=== PATIENT | male | born 1965 | race Caucasian/White ===

== ENCOUNTER 2017-03-09 16:14 | Emergency (ER) | payer MEDICARE ==
[~2017-03-09] VITALS: Ht 182.9 cm; Wt 109.0 kg
[2017-03-09 16:14] VITALS: TEMP 97.6; Ht 182.9 cm; Wt 109.0 kg
[2017-03-09] MEDS ORDERED: IBUP-1724 PO (16:52)
[2017-03-09] MEDS ORDERED: VENL37.572 PO (16:52)
[2017-03-09] MEDS ORDERED: TRAZ-170 PO (16:52)
[2017-03-09] MEDS ORDERED: MELA10TA2 PO (16:52)
[2017-03-09 16:56] LABS: BLOOD, URINE NEGATIVE (NEGATIVE); COLOR,URINE YELLOW (YELLOW); LEUKOCYTE ESTERASE ,URINE NEGATIVE (NEGATIVE); NITRITE,URINE NEGATIVE (NEGATIVE)
--- NOTE | 2017-03-09 16:56 | ERPDOC ---
Departure Disposition Decision Date: March 09, 2017 Disposition Decision Time: 21:35 Disposition: [facility] TO [facility] Impression Impression Impression: Primary Impression: Suicidal ideation Severity: Mild Condition: Improved Seen By: Physician only Patient Instructions: Medical Clearance for Psychiatric Care (ED), Suicide Prevention for Adults (ED) Problems/Meds/Labs Reviewed?: Yes Medications reviewed and manag: Yes Follow up care ordered?: Yes Mental Status: Alert, Oriented HPI - Psychosocial General Chief Complaint: Psychiatric Problems Stated Complaint: ANXIETY,DEPRESSION Time Seen by MD: 16:18 Source: patient (Patient presents to the ER with multiple complaints. Patient has relocated from [place], and had [facility] for anxiety , depression and schizophenia. Patient states he feels more anxious than normal, and has been having suicidal thought, without a plan ) Exam Limitations: no limitations HPI - Psychosocial Occurred At: home Onset: Changing over time Duration: other Severity: mild Associated Symptoms: anxiety, impaired concentration, suicidal ideation Hx of Similar Symptoms: Yes Allergies: Coded Allergies: aspirin (Verified Allergy, Mild, HIVES, 03/09/17) Past History Past Medical History Pt denies signifigant PMH Hx Echocardiogram: No Psychological: anxiety, depression, schizophrenia Surgical History Denies Surgeries Family History Family History: Negative Social History Smoking Status: Unknown if ever smoked Does patient use chewing tobac: No Second Hand Exposure: No Substance Use Type: does not use Alcohol Intake: none Marital Status: Sexuality: female partner Housing: house Household Members: spouse Service: No Occupational Hazard: No Advance Directives: Yes Full Code Record Review Pertinent history updated: Yes Review of Systems Constitutional Constitutional: DENIES: chills, fever Eyes Lids/Accessories: DENIES: erythema, swelling ENMT Ears: DENIES: erythema, pain Balance: DENIES: ataxia, vertigo Sinuses: DENIES: congestion, rhinorrhea Mouth/Throat: DENIES: sore throat Cardiovascular Cardiac: DENIES: chest pain, dyspnea on exertion, orthopnea Rhythm/Rate: DENIES: tachycardia Pulmonary Respiratory: DENIES: cough, dyspnea, sputum GI Upper Abdomen: DENIES: nausea, pain, vomiting Lower Abdomen: DENIES: constipation, diarrhea, pain General: DENIES: dysuria Musculoskeletal General: DENIES: cramps, pain, weakness Integumentary Skin: DENIES: color change, itching, rash Neurological General: DENIES: ataxia, change in strength, headache, numbness, poor coordination, seizures, syncope, vertigo, weakness Psychiatric Psychiatric: DENIES: anxiety, depression, nervousness Hematologic/Lymphatic Hematologic/Lymphatic: DENIES: anemia Allergic/Immunological Allergic/Immunoligical: DENIES: sneezing All other Systems All Other Systems: Reviewed and Negative Physical Exam General General Nourishment: well nourished, well developed, appears stated age, adult General Body Habitus: well groomed Vitals and Pain First Documented Vital Signs Date Time Temp Pulse Resp B/P Pulse Ox O2 Delivery O2 Flow Rate FiO2 03/09/17 16:14 97.6 77 20 99/62 100 Room Air Weight: Kilograms: 109.000 Height (feet): 6 Height (inches): 0 Triage Pain Scale: RN VS reviewed by Provider: Yes Eyes (brief) Eyes Brief: found: EOMI, PERRL ENMT (brief) ENMT Brief: FOUND: TM clear, TM good light reflex, mucosa moist, NOT FOUND: pharnyx erythema Neck (brief) Neck: FOUND: trachea midline, NOT FOUND: adenopathy, nuchal rigidity, tenderness, tracheal deviation Respiratory (brief) Respiratory: FOUND: clear all milner, equal bilaterally Cardiovascular (brief) Cardiac: FOUND: regular rate, regular rhythm Capillary Refill: <2 sec Pulses: all distal extremities, equal, strong Abdomen (brief) Abdominal Brief: FOUND: bowel normo active x4, soft, NOT FOUND: distended, tender Lymphatic (brief) Lymphatic Brief: NOT FOUND: adenopathy Musculoskeletal (brief) Musculoskeletal Brief: NOT FOUND: spasm, tenderness Integumentary (brief) Integumentary Brief: FOUND: pink, warm Neurologic (brief) Neurological Brief: FOUND: CN w/o gross def to obs, gait w/o gross def to obs, motor-no gross deficits, sensory-no gross deficits, NOT FOUND: ataxia Psychiatric (brief) Psychiatric Brief: FOUND: alert, attentive, normal affect, oriented Differential Diagnoses Considering: Anxiety, Bipolar, Depression, Homicidal Ideation, Hypoglycemia, Alcohol Intoxication, Other Intoxication, Acute Psychosis, Suicidal Attempt, Suicidal Gesture, Suicidal Ideation Progress Results/Orders Orders Procedure Category Date Status Time Cbc W/Auto LAB 03/09/17 Complete Diff-Reflex Manual Cmp - Comprehensive LAB 03/09/17 Complete Metabolic Acetaminophen LAB 03/09/17 Complete Salicylate LAB 03/09/17 Complete Ethanol LAB 03/09/17 Complete Tsh - Thyroid Stim LAB 03/09/17 Complete Hormone Ua, Dip Wreflex LAB 03/09/17 Complete [employer] 16:30 Drug Screen LAB 03/09/17 [place] [facility] [place] Lorazepam (Ativan) PHA 03/09/17 Complete 17:45 Lab Results Laboratory Tests Test 03/09/17 16:46 03/09/17 16:49 03/09/17 18:43 White Blood Count 6.7T/MM3 Red Blood Count 4.54M/MM3 Hemoglobin 14.8GM/DL Hematocrit 41.4% Mean Corpuscular Volume 91.2UM3 Mean Corpuscular Hemoglobin 32.6UUG Mean Corpuscular Hemoglobin Concent 35.7GM/DL RDW Standard Deviation 39.2FL Platelet Count 216T/MM3 Mean Platelet Volume 10.8UM3 Immature Granulocyte % (Auto) % Neutrophils (%) (Auto) % Lymphocytes (%) (Auto) % Monocytes (%) (Auto) % Eosinophils (%) (Auto) % Basophils (%) (Auto) % Absolute Immature Granulocyte (auto T/MM3 Absolute Neutrophils (auto) T/MM3 Absolute Lymphocytes (auto) T/MM3 Absolute Monocytes (auto) T/MM3 Absolute Eosinophils (auto) T/MM3 Absolute Basophils (auto) T/MM3 Neutrophils % (Manual) 69.0% Band Neutrophils % 3.0% Lymphocytes % (Manual) 21.0% Monocytes % (Manual) 4.0% Eosinophils % (Manual) 2.0% Basophils % (Manual) 1.0% Absolute Neutrophils (Manual) 4.6T/MM3 Band Neutrophils # 0.2T/MM3 Lymphocytes # (Manual) 1.4T/MM3 Monocytes # (Manual) 0.3T/MM3 Eosinophils # (Manual) 0.1T/MM3 Basophils # (Manual) 0.1T/MM3 Red Cell Morphology Comment Normal Turbidity < 20 Sodium Level 145MEQ/L Potassium Level 3.7MEQ/L Chloride Level 105MEQ/L Carbon Dioxide Level 28MEQ/L Anion Gap 12MEQ/L Blood Urea Nitrogen 16.0MG/DL Creatinine 0.7MG/DL Glomerular Filtration Rate Calc 120 BUN/Creatinine Ratio 23RATIO Glucose Level 103MG/DL Calculated Osmolality 280MOSM/KG Calcium Level 9.3MG/DL Total Bilirubin 0.60MG/DL Icterus Index < 2 Aspartate Amino Transf (AST/SGOT) 24U/L Alanine Aminotransferase (ALT/SGPT) 43U/L Alkaline Phosphatase 84U/L Total Protein 7.1G/DL Albumin 4.2G/DL Globulin 2.9G/DL Albumin/Globulin Ratio 1.4RATIO Thyroid Stimulating Hormone (TSH) 0.96MIU/L Chemistry Specimen Hemolysis < 15 Salicylates Level < 1.0MG/DL Acetaminophen Level < 10UG/ML Alcohol, Quantitative <10MG/DL Urine Collection Type Cleancatch-midstream Urine Color Yellow Urine Turbidity Clear Urine pH 6.5 Urine Specific [place] 1.020 Urine Protein Negative Urine Glucose (UA) Negative Urine Ketones Negative Urine Blood Negative Urine Nitrite Negative Urine Bilirubin Negative Urine Urobilinogen 1.0EU/DL Urine Leukocyte Esterase Negative Urinalysis Comment Microscopic not ind. Urine Opiates Screen NegativeNG/ML Urine Oxycodone Screen NegativeNG/ML Urine Methadone Screen NegativeNG/ML Urine Propoxyphene Screen NegativeNG/ML Urine Barbiturates Screen NegativeNG/ML Urine Tricyclic Antidepressants NegativeNG/ML Urine Phencyclidine Screen NegativeNG/ML Urine Amphetamines Screen NegativeNG/ML Urine Methamphetamines Screen NegativeNG/ML Urine Benzodiazepines Screen NegativeNG/ML Urine Cocaine Screen NegativeNG/ML Urine Cannabinoids Screen NegativeNG/ML Lab Scanned Report REFERENCE [id number] Medications Current ED Medications Lorazepam (Ativan) 1 mg O ONCE PO Last administered on 03/09/17t 17:52; Start 03/09/17 at 17:45; Stop 03/09/17 at 17:46; Status DC Progress Progress Case discussed with Dr. Shah at 18:00 hours, who will assume care for the patient and will make the final disposition Consult/PCP Consult/PCP : Physician Contacted: Amalia Ace Time Called: 17:58 Time of first response: 17:58 Type of discussion: Phone Consult/PCP Discussion Details Discussed patient examination, labs and history Comments Will review labs, screener will call back MIRA SWENSON DO March 09, 2017 16:56
[2017-03-09 17:12] LABS: HCT - HEMATOCRIT 41.4 % (41-53); HGB - HEMOGLOBIN 14.8 GM/DL (13.5-17.5); MEAN CORPUSCULAR HGB 32.6 UUG (26-34); MEAN CORPUSCULAR HGB CONC(MCHC 35.7 GM/DL (31-37); MEAN CORPUSCULAR VOLUME 91.2 UM3 (80-100); MEAN PLATELET VOLUME 10.8 UM3 (9.4-12.4); RED BLOOD COUNT 4.54 M/MM3 (4.50-5.90); WBC - WHITE BLOOD COUNT 6.7 T/MM3 (4.5-11.0)
[2017-03-09 17:19] LABS: ALBUMIN 4.2 G/DL (3.5-5.0); ALBUMIN/GLOBULIN RATIO 1.4 RATIO (1.1-2.2); ALKALINE PHOSPHATASE 84 U/L (38-126); ALT (SGPT) 43 U/L (21-72); ANION GAP 12 MEQ/L (5-15); AST (SGOT) 24 U/L (17-59); BUN/CREATININE RATIO 23 RATIO (6-26); CALCIUM 9.3 MG/DL (8.4-10.2); CHLORIDE 105 MEQ/L (98-107); CO2 - CARBON DIOXIDE 28 MEQ/L (22-30); CREATININE 0.7 MG/DL (0.8-1.5); GLOMERULAR FILTRATION RATE 120; GLUCOSE 103 MG/DL (75-110); POTASSIUM 3.7 MEQ/L (3.6-5); SODIUM 145 MEQ/L (134-144); TOTAL PROTEIN 7.1 G/DL (6.3-8.2)
[2017-03-09 17:31] LABS: AMPHETAMINE SCREEN,URINE NEGATIVE; BARBITURATE SCREEN,URINE NEGATIVE; BENZODIAZEPINES SCREEN,URINE NEGATIVE; CANNABINOID SCREEN,URINE NEGATIVE; COCAINE SCREEN,URINE NEGATIVE; METHADONE SCREEN, URINE NEGATIVE; METHAMPHETAMINE SCREEN, URINE NEGATIVE; OPIATE SCREEN,URINE NEGATIVE; PHENCYCLIDINE SCREEN,URINE NEGATIVE; TRICYCLIC ANTIDEPRESSANT,URINE NEGATIVE
[2017-03-09] MEDS ORDERED: LORAZEPAM 1 MG TABLET PO ONE (17:45)
[2017-03-09 17:47] LABS: THYROID STIM HORMONE-TSH 0.96 MIU/L (0.47-4.68)
[2017-03-09 17:51] LABS: ACETAMINOPHEN < 10 UG/ML (10-30); ETHANOL <10 MG/DL (<10); SALICYLATE < 1.0 MG/DL (2-20)
[2017-03-09 17:52] LABS: BAND NEUTROPHILS # 0.2 T/MM3; BASOPHILS # (MANUAL) 0.1 T/MM3 (0-0.2); EOSINOPHILS # (MANUAL) 0.1 T/MM3 (0-0.5); LYMPHOCYTES # (MANUAL) 1.4 T/MM3 (1-4.8); MONOCYTES # (MANUAL) 0.3 T/MM3 (0-0.8); NEUTROPHILS #(MANUAL)-ABSOLUTE 4.6 T/MM3 (1.8-7.7); TOTAL CELLS COUNTED 100 %
--- NOTE | 2017-03-09 20:27 | NUR ---
[facility] GIVEN REPORT.
--- NOTE | 2017-03-09 20:28 | NUR ---
EMS NOTIFIED OF NEED FOR TRANSFER
--- NOTE | 2017-03-09 20:35 | NUR ---
DEPART PT IS AMBULATORY WITH EMS STAFF TO THE AMBULANCE IN THE [place]. TRANSFER COMPLETE
[2017-03-09 20:42] VITALS: BP 127/71; PULSE 82; RESP 18; O2SAT 97
== END 2017-03-09 20:35 ==
LOC: ED 16:14
DX: R45.851 Suicidal ideations (principal); F41.8 Other specified anxiety disorders; Z79.899 Other long term (current) drug therapy
CPT/HCPCS: 36415; 80053; 80306; 80307; 81003; 84443; 85025; 99285; A9270